=== PATIENT | female | born 2000 | race Caucasian/White ===

== ENCOUNTER 2020-09-16 14:14 | Emergency (ER) | payer MEDICAID ==
[~2020-09-16] VITALS: Ht 172.7 cm; Wt 129.0 kg
[2020-09-16] MEDS ORDERED: NAPROSYN500 MG PO (14:26)
== END 2020-09-16 16:18 | disposition home or self-care (01) ==
LOC: ED 14:14 → EDBD 14:15 → ED 16:18
DX: T67.5XXA Heat exhaustion, unspecified, initial encounter (principal); J45.909 Unspecified asthma, uncomplicated; F17.200 Nicotine dependence, unspecified, uncomplicated; Z79.899 Other long term (current) drug therapy
CPT/HCPCS: 80053; 84703; 85025; 99285